=== PATIENT | male | born 1945 | race Caucasian/White ===

== ENCOUNTER 2018-10-07 05:38 | Day surgery (SDC) | payer OTHER ==
[~2018-10-07] VITALS: Ht 185.4 cm; Wt 95.7 kg
--- NOTE | ~2018-10-07 | O ---
[facility] [place] [address] OPERATIVE REPORT Name: JOSE CUEVAS Room #: 150-5 [facility].#: [id number] Admission: 10/07/18 ������������������ Attend Phys: Luis Manuel Camargo MD Discharge: ������������������ Date of : 49 Report #: [id number] THIS REPORT FOR: //name// CC: FAM unknown Luis Manuel Camargo DATE OF SERVICE: 10/07/2018 PREOPERATIVE DIAGNOSIS: Left fifth metatarsal fracture nonunion. POSTOPERATIVE DIAGNOSIS: Left fifth metatarsal fracture nonunion. PROCEDURE: Left foot fifth metatarsal open reduction and internal fixation. SURGEON: Luis Manuel Camargo MD COPRA SAMPLER: Bell Gentile. ANESTHESIA: General. ESTIMATED BLOOD LOSS: Minimal. DRAINS: None. TOURNIQUET TIME: 30 minutes. DESCRIPTION OF PROCEDURE: The patient was brought to the operating room where he was placed under general anesthesia. Once under adequate general anesthesia, his left lower extremity was then prepped and draped in sterile manner. The extremity was elevated, exsanguinated, and tourniquet placed at 300 mmHg. Utilizing fluoroscopy for guidance, a 3 cm incision overlying the fracture was then made. This was dissected directly down to the fracture site at the dorsum of the fifth metatarsal. Fracture itself was then identified and freed utilizing a Greenleaf elevator and good bleeding was noted to be evident from each of the bony surfaces of the fracture fragments. Therefore, a guidewire for the cannulated drill was then placed for a 5.5 mm screw. Once this was placed, the screw did appear to be a little bit small for the fracture fragment; therefore, a guidewire for the 6.5 screw was then placed. This was then drilled for and subsequent fixation was achieved with a 40 mm 6.5 mm in diameter screw. Excellent fixation and alignment was achieved as verified under fluoroscopy. Once complete, the wound was irrigated copiously and closed with 2-0 Vicryl in subcutaneous tissues and soila for the skin. The wounds were dressed with Xeroform, 4 x 4s, and a sterile soft compressive dressing was placed. Tourniquet was let down at approximately 30 minutes. Toes were pink and warm with good capillary refill. There were no complications from the procedure. [facility] [address] [place] [address] OPERATIVE REPORT Name: JOSE CUEVAS Room #: 150-5 [facility]..#: [id number] Admission: 10/07/18 ������������������ Attend Phys: Luis Manuel Camargo MD Discharge: ������������������ Date of : 49 Report #: [id number] The patient tolerated the procedure well and went to the recovery room without incident. ��������������������������������������������� ���������������������������������������� By: ��������������������������������������������� 1335 1420 Luis Manuel Camargo MD /nt
[~2018-10-07 05:38] MED LIST: GLUCOSAMINE CH1 EAC2 PO; NOVOLOG FL100 UNIT/M SUBQ; OMEPRAZOLE40 MG PO; RANITIDINE HCL300 MG PO; ROPINIROLE HCL0.5 MG PO; TRESIBA FL100 UNIT/1 SUBQ; TYLENOL325 MG PO; VITAMIN B-12500 MCG PO; VITAMIN D-32000 UNIT PO; XARELTO20 MG PO
[2018-10-07] MEDS ORDERED: PERCOCET 7.5-31 EACH PO (13:27)
[2018-10-07 15:32] VITALS: BP 138/78
--- NOTE | 2018-10-08 07:24 | EKG ---
[place] [address] [facility] [place] [address] ELECTROCARDIOGRAM REPORT Name: KIKO CUEVASAV Lang Room #: [facility]#: [id number] ������������������ Admission: 10/07/18 ������������������ Attend Phys: Luis Manuel Camargo MD Discharge: 10/07/18 ������������������ Date of : 49 Report #: [id number] ����������������������������������������������������������������� [id number] THIS REPORT FOR: //name// [facility] Test Date: 2018-10-07 Test Time: 11:24:52 Pat Name: JOSE CUEVAS Department: Room: 150 5 Gender: M Neuropsychology Division Chief: MECHELLE : 1945 Requested By: Luis Manuel Camargo Order Number: [id number] MD: Tono Bear Measurements Intervals Theodore Rate: 63 P: -4 IN: 156 QRS: 31 QRSD: 99 T: 24 QT: 424 QTc: 435 Interpretive Statements Sinus rhythm RSR' in V1 or V2, right VCD No previous ECG available for comparison Electronically Signed On 10-08-2018 7:23:51 CDT by Tono Bear [email or web address] ��������������������������������������������� <ELECTRONICALLY SIGNED> ���������������������������������������� By: Tono Bear MD, [facility] ��������������������������������������������� 10/08/18 0723 [id number] Tono Bear MD, [facility] /EPI
== END 2018-10-07 14:45 | disposition home or self-care (01) ==
LOC: OR 05:38 → TBA 05:38 → OR 14:20
DX: S92.352K Displaced fracture of fifth metatarsal bone, left foot, subsequent encounter for fracture with nonunion (principal); E11.9 Type 2 diabetes mellitus without complications; G47.33 Obstructive sleep apnea (adult) (pediatric); K21.9 Gastro-esophageal reflux disease without esophagitis; Z79.4 Long term (current) use of insulin; Z87.442 Personal history of urinary calculi; Z79.01 Long term (current) use of anticoagulants; Z90.49 Acquired absence of other specified parts of digestive tract; Z86.711 Personal history of pulmonary embolism; Z85.07 Personal history of malignant neoplasm of pancreas; Z91.041 Radiographic dye allergy status; Z79.899 Other long term (current) drug therapy; Z79.891 Long term (current) use of opiate analgesic; Z98.890 Other specified postprocedural states; X58.XXXD Exposure to other specified factors, subsequent encounter
CPT/HCPCS: 50010; 50101; 50386; 51412; 55430; 56524; 57091; 57180; 62110; 62900; 70005